=== PATIENT | male | born 1960 | race Caucasian/White ===

== ENCOUNTER 2016-11-10 14:33 | Emergency (ER) | payer OTHER ==
--- NOTE | ~2016-11-10 | CR157 ---
[facility] A Service of [facility] & [facility] RADIOLOGY TEXT RESULTS PATIENT: ZHANNA GONZALEZ LOCATION: [facility] : 64 UNIT #: [id number] AGE: [address]: Delmer Puente MD SEX: M ORDER DR: [id number] [facility] [address] [place], [place] [address] [id number] E MR#: [id number] Acc #: [id number] NAME: ZHANNA GONZALEZ : 1960 SEX: M STUDY DATE/TIME: 11/10/2016 15:04 UNIT: [facility] ROOM: STUDY DESCRIPTION: CR Humerus Min 2 View Rt Attending Physician: Delmer Puente M.D. Ordering Physician: Delmer Puente M.D. Primary Care Physician: Reid Vuong Aprn MEDICAL IMAGING REPORT This report is preliminary unless electronic signature is present EXAM Right humerus, 2 views INDICATIONS Fall today, upper right arm pain. No comparisons. FINDINGS There is an obliquely oriented fracture involving the proximal humeral diaphysis. Fracture fragments are slightly overriding. Minimal displacement. IMPRESSION Obliquely oriented fracture of the proximal humeral diaphysis. Dictated by... Obi Hardwick M.D. THIS IS AN ELECTRONICALLY VERIFIED REPORT Obi Hardwick M.D. at 11/11/2016 7:19 AM VIRGIL/camila TD: 11/10/2016 21:13 JOB #: [id number] MEDICAL IMAGING REPORT Page 1 of 1 COPY
--- NOTE | ~2016-11-10 | CR94 ---
[facility] A Service of [facility] & [facility] RADIOLOGY TEXT RESULTS PATIENT: ZHANNA GONZALEZ LOCATION: [facility] : 64 UNIT #: [id number] AGE: [address]: Delmer Puente MD SEX: M ORDER DR: [id number] [facility] [address] [place], [place] [address] [id number] E MR#: [id number] Acc #: [id number] NAME: ZHANNA GONZALEZ : 1960 SEX: M STUDY DATE/TIME: 11/10/2016 15:05 UNIT: [facility] ROOM: STUDY DESCRIPTION: CR Elbow Min 3 Views Rt Attending Physician: Delmer Puente M.D. Ordering Physician: Delmer Puente M.D. Primary Care Physician: Reid Vuong Aprn MEDICAL IMAGING REPORT This report is preliminary unless electronic signature is present EXAM Right elbow, 3 views INDICATIONS Right elbow pain after falling. This occurred today. No comparisons. FINDINGS Study is limited due to patient positioning. Within the limitations of the study, there is no obvious fracture or dislocation. Noted is a fracture of the proximal humerus, which is described in detail on the humerus x-ray. IMPRESSION 1. No evidence for elbow fracture or dislocation within the limitations of the study. 2. Proximal humerus fracture as described on the humerus x-ray. Dictated by... Obi Hardwick M.D. THIS IS AN ELECTRONICALLY VERIFIED REPORT Obi Hardwick M.D. at 11/11/2016 7:19 AM ARS/camila TD: 11/10/2016 21:48 JOB #: [id number] MEDICAL IMAGING REPORT Page 1 of 1 COPY
[~2016-11-10 14:33] MED LIST: NORVASC10 MG PO; TRAMADOL HCL50 M1 PO; ZOCOR20 MG PO
== END 2016-11-10 17:05 | disposition home or self-care (01) ==
LOC: CED 14:33
DX: S42.201A Unspecified fracture of upper end of right humerus, initial encounter for closed fracture (principal); I10 Essential (primary) hypertension; E78.5 Hyperlipidemia, unspecified; F32.9 Major depressive disorder, single episode, unspecified; F17.200 Nicotine dependence, unspecified, uncomplicated; Z88.7 Allergy status to serum and vaccine; W19.XXXA Unspecified fall, initial encounter; Y92.009 Unspecified place in unspecified non-institutional (private) residence as the place of occurrence of the external cause
CPT/HCPCS: 73060; 73080; 96372; 99283; J1170